=== PATIENT | female | born 1985 | race Caucasian/White ===

== ENCOUNTER → 2019-10-05 | Outpatient (CLI) | payer BC ==
--- NOTE | 2019-10-05 10:33 | US ---
EXAMINATION TYPE: US mass soft tissue chest/back DATE OF EXAM: 10/05/2019 COMPARISON: NONE CLINICAL HISTORY: R22.2 SWELLING,MASS AND LUMP BACK. Patient feels lump superior right buttock for two months, is not painful. Patient states feels about the size of a softball. Scanning was performed directly over lump as pointed out by patient, as well as the contralateral mauro e for comparison purposed. There is not a definite mass or fluid collection seen. The tissue is incre ased in depth as compared to the left side. IMPRESSION: No discrete abnormality. Consider MRI as indicated.
== END | disposition home or self-care (01) ==
LOC: RADUSWWP 08:42
PROVIDERS: ATTEND Family Medicine
DX: R22.2 Localized swelling, mass and lump, trunk (principal)

== ENCOUNTER → 2020-06-11 | Outpatient (CLI) | payer BC ==
--- NOTE | 2020-06-11 15:55 | MR ---
MR pelvis with and without contrast HISTORY: Localized swelling, mass, lump Multiplanar multisequence and postcontrast images obtained to the pelvis following 11.5 cc Gadavist I V. Correlation to ultrasound dated 10/05/2019 At the site of patient's palpable abnormality in the gluteal region there is an overlying marker. At the site of the marker there is no discrete mass. There is no enhancing lesion. Fat signal intensi ty is present. Uterus and adnexal structures are within normal limits. Thickening along the rectosigmoid colon may b e due to muscular hypertrophy, difficult to exclude a mucosal lesion. Bone marrow signal is maintaine d. There is artifact presumably due to patient's body habitus. Urinary bladder is unremarkable as see n. Tampon is in place. No pelvic adenopathy or free fluid. IMPRESSION: Palpable abnormality may correspond to an underlying lipoma, normal fat signal is present in the gluteal region.
== END ==
LOC: RADMRIMAIN 12:05
PROVIDERS: ATTEND Family Medicine
DX: R19.09 Other intra-abdominal and pelvic swelling, mass and lump (principal)
CPT/HCPCS: 72197; A9585

== ENCOUNTER → 2021-06-04 | Outpatient (CLI) | payer BC ==
[2021-06-04 14:59] LABS: Basophils # (A) 0.04 X 10*3/uL (0.00-0.10); Basophils % (A) 0.8 %; Eosinophils # (A) 0.09 X 10*3/uL (0.04-0.35); Eosinophils % (A) 1.8 %; HCT 35.2 % (37.2-46.3); Immature Grans, Automated 0.2 %; Lymphocytes # (A) 1.53 X 10*3/uL (0.90-5.00); Lymphocytes % (A) 30.2 %; MCH 25.9 pg (27.0-32.0); MCHC 31.3 g/dL (32.0-37.0); Mean Platelet Volume 10.9 fL (9.5-12.2); Monocytes # (A) 0.32 X 10*3/uL (0.20-1.00); Monocytes % (A) 6.3 %; NRBC Per 100 WBC 0 /100 WBCS (0.0-0.0); Neutrophils # (A) 3.07 X 10*3/uL (1.80-7.70); Neutrophils % (A) 60.7 %; Platelet Count 202 X 10*3/uL (140-440); RBC 4.24 X 10*6/uL (4.10-5.20); RDW 13.3 % (11.5-14.5); WBC 5.06 X 10*3/uL (4.50-10.00)
== END | disposition home or self-care (01) ==
LOC: LABPAT 09:54
PROVIDERS: ATTEND Obstetrics & Gynecology
DX: Z01.812 Encounter for preprocedural laboratory examination (principal)
CPT/HCPCS: 85025

== ENCOUNTER 2021-06-18 05:45 | Day surgery (SDC) | payer BC ==
[2021-06-16 08:44] VITALS: BMI 39.5
--- NOTE | 2021-06-17 12:26 | P.HPOB ---
History of Present Illness H&P Date: 06/17/21 Chief Complaint: Menorrhagia This patient is a pleasant 36-year-old 2 para 2 female who presented to my office requesting endometrial ablation secondary to menorrhagia. This is been going on for many years and she has tried the control pill the past without success. She had an ultrasound done approximately 2 years ago which was normal. is scheduled for a vasectomy and she now wishes to proceed with an endometrial ablation for treatment. Review of Systems Genitourinary: Reports as per HPI, Reports menorrhagia Past Medical History Past Medical History: Asthma Additional Past Medical History / Comment(s): HEAVY IRREGULAR MENSES; large lipoma right buttocks History of Any Multi-Drug Resistant Organisms: None Reported Past Surgical History: Cholecystectomy Additional Past Surgical History / Comment(s): Oral surgery (wisdom teeth) Past Anesthesia/Blood Transfusion Reactions: No Reported Reaction Past Psychological History: No Psychological Hx Reported Smoking Status: Never smoker Past Alcohol Use History: None Reported Past Drug Use History: None Reported - Past Family History Mother Family Medical History: No Reported History, Hypertension Medications and Allergies Home Medications Medication Instructions Recorded Confirmed Type No Known Home Medications 06/16/21 06/16/21 History Allergies Allergy/AdvReac Type Severity Reaction Status Date / Time No Known Allergies Allergy Verified 06/16/21 08:36 Exam - OBG Physical Exam Abdomen: bowel sounds normal, no diffuse tenderness, no bruit present, no guarding noted, no hepatomegaly, no splenomegaly, no mass Vulva: both: normal Vagina: normal moisture, no discharge Cervix: no lesion, no discharge Uterus: normal size Results Ultrasound in May 2018 was normal. Assessment and Plan Assessment: This is a pleasant 36-year-old 2 para 2 female with long-standing menorrhagia that has had normal evaluation and is refractory to oral contraceptives. Patient's requesting a trial of endometrial ablation. Plan is hysteroscopy, D&C, and NovaSure endometrial ablation. Patient does understand this procedure and risks including risks of infection, bleeding, possible uterine perforation and/or thermal injury. All the patient's questions are answered and a written consent is obtained. (1) Menorrhagia Status: Chronic Code(s): N92.0 - EXCESSIVE AND FREQUENT MENSTRUATION WITH REGULAR CYCLE SNOMED Code(s): 520477335
[~2021-06-18 05:45] MED LIST: Pre Op ABX Message 1 EACH MISC MISCELLANE ONE
[2021-06-18] MEDS ORDERED: LACTATED RINGERS 1,000 ML IV SCH (06:07)
[2021-06-18] MEDS ORDERED: LIDOCAINE 1% (10MG/ML) FOR IV START INTRADERMA PRN (06:07)
[2021-06-18] MEDS ORDERED: ONDANSETRON 4 MG/2 ML VIAL IVP ONE (06:07)
[2021-06-18] MEDS ORDERED: DEXAMETHASONE SOD PHOSPHATE 4 MG/ML 1 ML VIAL IV ONE (06:07)
[2021-06-18] MEDS ORDERED: LIDOCAINE 1% INJ 10MG/ML (20 ML MDV) ONE (06:50)
[2021-06-18] MEDS ORDERED: MIDAZOLAM 2 MG/2 ML VIAL ONE (06:50)
[2021-06-18] MEDS ORDERED: KETOROLAC 15 MG/ML 1 ML VIAL ONE (06:50)
[2021-06-18] MEDS ORDERED: PROPOFOL 10 MG/ML 20 ML VIAL IV ONE (06:50)
[2021-06-18] MEDS ORDERED: fentaNYL (PF) 50 MCG/ML 2 ML AMP ONE (06:50)
[2021-06-18] MEDS ORDERED: HYDROmorphone 0.5 MG/0.5 ML SYRINGE IVP PRN (07:00)
[2021-06-18 07:25] VITALS: TEMP 97.5
--- NOTE | 2021-06-18 07:25 | P.OP ---
Date of Procedure: 06/18/21 Preoperative Diagnosis: Menorrhagia Postoperative Diagnosis: Same Procedure(s) Performed: #1: Hysteroscopy. #2: Dilation and curettage. #3: NovaSure endometrial ablation Anesthesia: MAC Surgeon: Reza Walker Estimated Blood Loss (ml): 10 Urine output (ml): 20 Pathology: other (Uterine curettings) Condition: stable Disposition: PACU Indications for Procedure: Please see dictated H&P for intimate details of this patient's admission. In brief summary this is a pleasant 36-year-old 2 para 2 female with long- standing menorrhagia requesting NovaSure endometrial ablation for treatment. Patient understands this surgery and risks including risks of infection, bleeding, possible uterine perforation, and/or thermal injury. All the patient's questions are answered and a written consent is obtained. Operative Findings: This patient had a normal-appearing endometrial cavity. Description of Procedure: This patient is taken to the operating room where she is laid in the supine position. She subsequently undergoes general mask anesthesia without incident. With adequate level of anesthesia, patient placed in the dorsal lithotomy position. She has a vaginal and perineal prep and drape. Examination under anesthesia shows a mid position uterus of normal size. A weighted speculum was placed in the posterior vagina. Bladder is drained for 20 mL of clear urine. Anterior lip of the cervix is then grasped with an Allis clamp. Uterus is then gently sounded to 9 cm. With this done the cervix is gently dilated to allow the hysteroscope easily and the uterine cavity. Using saline solution I visualize the uterus as best as possible, the patient is bleeding, and the uterus is thought to be 6.5 cm in length. With this done the hysteroscope was removed. Using a small curette I do a vigorous 4 quadrant curettage for adequate sampling. The NovaSure device is then opened. It is set at a length of 6.5 cm in opens up to a width of 4.2 cm. After seating it in place it passes the cavity integrity test is then enabled at 150 W setting for 41 seconds. NovaSure device is then removed and appears to be intact. Hysteroscopy is then performed again and the uterine cavity appears to completely ablated up to the endocervix. Excellent results are noted. With this done the procedure is ended. The Allis clamp and weighted speculum were removed. All counts are correct 3. There are no complications. Patient is awakened from anesthesia and taken recovery room in satisfactory condition
[2021-06-18 08:09] VITALS: RESP 20
[2021-06-18 08:36] VITALS: BP 1331/87; PULSE 64
== END 2021-06-18 08:54 | disposition home or self-care (01) ==
LOC: OR 05:45
PROVIDERS: ATTEND Obstetrics & Gynecology
DX: N92.0 Excessive and frequent menstruation with regular cycle (principal); J45.909 Unspecified asthma, uncomplicated
CPT/HCPCS: 58563; 81025; 88305; J2250; J1100; J2405; J2001; J3010; J1885; J2704